=== PATIENT | male | born 1940 | race Two or more races ===

== ENCOUNTER 2022-04-30 14:33 | Inpatient (IN) | payer MEDICARE, OTHER ==
[~2022-04-30] VITALS: Ht 167.6 cm; Wt 73.0 kg
[2022-04-30] MEDS ORDERED: IV NORMAL SALINE 500 ML BAG IV ONE (15:15)
--- NOTE | 2022-04-30 15:30 | NUR ---
Pt ambulatory with cane to room 4A, Somali speaking. MARLON johnson for medical clearance, psych eval and admission to MHU. Pt is alert and oriented x 1, calm and cooperative at this time. Blood drawn by lab. THOMAS Land is aware pt is here and stated she will come in later to eval pt after medical clearance.
--- NOTE | 2022-04-30 15:42 | NUR ---
Pt to be admitted to room 145-B post medical clearance and psych eval.
[2022-04-30 15:50] LABS: HEMATOCRIT 39.8 % (36.7-47.1); MEAN CORPUSCULAR HEMOGLOBIN 26.7 uug (23.8-33.4); MEAN CORPUSCULAR VOLUME 83.4 fL (73.0-96.2); PLATELET COUNT (AUTO) 269 K/uL (152-348)
[2022-04-30 16:01] LABS: CARBON DIOXIDE 29 mmol/L (21-32); CHLORIDE 100 mmol/L (98-107); CREATININE 0.8 mg/dL (0.6-1.3); GLUCOSE 259 mg/dL (74-106); POTASSIUM 3.7 mmol/L (3.5-5.1); UREA NITROGEN, BLOOD 11 mg/dL (7-18)
[2022-04-30] MEDS ORDERED: DOXA4TAB2 PO (16:04)
[2022-04-30] MEDS ORDERED: HYDR-4077 PO (16:04)
[2022-04-30] MEDS ORDERED: GLIP5TAB13 PO (16:04)
[2022-04-30] MEDS ORDERED: EMPA10TA PO (16:04)
[2022-04-30] MEDS ORDERED: BENA40TA67 PO (16:04)
[2022-04-30] MEDS ORDERED: XARELTO PO (16:04)
[2022-04-30] MEDS ORDERED: ASPI81TA31 PO (16:04)
[2022-04-30] MEDS ORDERED: ATOR80TA PO (16:04)
[2022-04-30] MEDS ORDERED: ICOS1CAP PO (16:04)
[2022-04-30] MEDS ORDERED: METF-442 PO (16:04)
[2022-04-30] MEDS ORDERED: DONE10TA44 PO (16:04)
[2022-04-30 16:05] LABS: *BILIRUBIN,URIN NEGATIVE (NEGATIVE); *BLOOD, URINE 2+ (NEGATIVE); *CLARITY,URINE CLEAR (CLEAR); *COLOR,URINE YELLOW (YELLOW); *KETONES,URINE NEGATIVE (NEGATIVE); *UROBILINOGEN,URINE 0.2 E.U./dl (NORMAL); LEUKOCYTE ESTERASE ,URINE NEGATIVE (NEGATIVE); NITRITE, URINE NEGATIVE (NEGATIVE); PH,URINE 5.5 (5.0-8.0); UGLUCOSE 2+ (NEGATIVE)
[2022-04-30 16:07] LABS: ETHANOL < 3 MG/DL (0-0)
[2022-04-30 16:08] LABS: ALANINE AMINOTRANSFERASE 38 U/L (16-63); ALKALINE PHOSPHATASE 79 U/L (50-136); ASPARTATE AMINOTRANSFERASE 17 U/L (15-37); BILIRUBIN,DIRECT 0.1 mg/dL (0.0-0.2); BILIRUBIN,TOTAL 0.5 mg/dL (0.2-1.0); TOTAL PROTEIN, SERUM 8.1 g/dL (6.4-8.2)
[2022-04-30 16:13] LABS: ACETAMINOPHEN < 2.0 ug/mL (10-30)
[2022-04-30] MEDS ORDERED: HYDR-501 PO (16:16)
[2022-04-30 16:21] LABS: *AMPHETAMINE, URINE NEGATIVE (NEGATIVE); *CANNABINOID, URINE NEGATIVE (NEGATIVE); *COCCAINE, URINE NEGATIVE (NEGATIVE); *OPIATE, URINE NEGATIVE (NEGATIVE); *PHENCYCLIDINE SCREEN,URINE NEGATIVE (NEGATIVE)
--- NOTE | 2022-04-30 16:26 | NUR ---
Per pt is medically clear for psych eval, spoke with Shanda who stated her or Seble will be in to eval the pt.
--- NOTE | 2022-04-30 18:30 | NUR ---
Seble here for psych eval.
--- NOTE | 2022-04-30 18:55 | NUR ---
Pt placed on 5150 Hold by bernard Pruett to be admitted to /[facility], U room 145-B.
--- NOTE | 2022-04-30 19:10 | NUR ---
Received report from АНДРЕЙ Tabares.
[2022-04-30 20:10] LABS: BACTERIA,URINE RARE /HPF (NONE SEEN); SQUAMOUS EPITHELIAL CELL,UR FEW /HPF (NONE SEEN); WBC,URINE 0-3 /HPF (0-3)
--- NOTE | 2022-04-30 20:18 | NUR ---
Report given to АНДРЕЙ Soler.
--- NOTE | 2022-04-30 21:10 | NUR ---
Pt. admitted to MHU rm 145 B, under care of Dr. Mcpherson/Dr. Orozco. Belongs List completed АНДРЕЙ Soler aware of patient's arrival to unit.
[2022-04-30 21:22] VITALS: BP 164/70
[2022-04-30] MEDS ORDERED: MAGNESIUM HYDROXIDE 30 ML LIQUID UDC PO PRN (21:30)
[2022-04-30] MEDS ORDERED: MAG HYDROX/AL HYDROX/SIMETH 30 ML LIQUID UDC PO PRN (21:30)
[2022-04-30] MEDS ORDERED: LORAZEPAM 0.5 MG TABLET PO PRN (21:30)
[2022-04-30] MEDS ORDERED: ZOLPIDEM 5 MG TABLET PO PRN (21:30)
[2022-04-30] MEDS ORDERED: ACETAMINOPHEN 325 MG TABLET PO PRN (21:30)
--- NOTE | 2022-05-01 05:09 | NUR ---
Admission Note: Patient is an 82 y/o male, brought to the emergency room via daughter. According to the 5150 hold, he is being held for GD and DTO. Per 5150, the patient became increasingly aggressive and defiant, and was refusing to participate in ADLs, medication, and treatment. Upon face to face assessment, pt is Wolof speaking only/broadcast engineer needed. Pt was appeared depressed, anxious, and a poor historian. Medical history was obtained via daughter Fatuma on file. Patient's advisement and handbook was explained and provided. [facility] outside plant cable engineer Derderian notified regarding the admission. Safety measure in place.
[2022-05-01 07:57] VITALS: BP 159/71
[2022-05-01 08:09] LABS: BILIRUBIN,TOTAL 0.5 mg/dL (0.2-1.0); CREATININE 0.8 mg/dL (0.6-1.3); TOTAL PROTEIN, SERUM 7.5 g/dL (6.4-8.2)
[2022-05-01] MEDS ORDERED: RIVAROXABAN 10 MG TABLET PO SCH (09:00)
[2022-05-01] MEDS ORDERED: DOXAZOSIN MESYLATE PO SCH (09:00)
[2022-05-01] MEDS ORDERED: Empagliflozin (Jardiance) 10 MG) PO SCH (09:00)
[2022-05-01] MEDS ORDERED: hydrALAZINE HCL 50 MG TABLET PO ONE (09:00)
[2022-05-01] MEDS ORDERED: hydrOXYzine HCL 25 MG TABLET PO SCH (09:00)
[2022-05-01] MEDS ORDERED: BENAZEPRIL HCL 20 MG TABLET PO ONE (09:00)
[2022-05-01] MEDS ORDERED: DONEPEZIL 10 MG TABLET PO SCH ×2 (09:00→21:00)
[2022-05-01] MEDS ORDERED: Medication Not On Formulary EA (Atorvastatin Calcium (Lipitor) 1 TAB) PO SCH (09:00)
[2022-05-01] MEDS: glipiZIDE 5 MG TABLET PO SCH ×2 (09:53→16:37)
[2022-05-01] MEDS: MEMANTINE HCL 5 MG TABLET PO SCH ×2 (09:53→21:34)
[2022-05-01] MEDS: ASPIRIN 81 MG TAB.CHEW PO SCH (09:54)
[2022-05-01] MEDS: ESCITALOPRAM OXALATE 10 MG TABLET PO SCH (09:54)
[2022-05-01] MEDS: METFORMIN HCL 500 MG TABLET PO SCH ×2 (09:58→17:21)
[2022-05-01] MEDS ORDERED: HYDR12.55 PO (10:43)
[2022-05-01] MEDS: DOXAZOSIN 2 MG TABLET PO SCH (13:04)
--- NOTE | 2022-05-01 14:41 | NUR ---
GPS: Nursing Notes: Destructive Behavior To Others: Patient is awake and responding to his name, poor insight, believes that he is here for his inflammation of his foreskin of his penis, A/Ox2, needs prompting to participate in therapeutic groups, isolative and withdrawn in his room, ambulatory with fww, unable to formulate a viable plan for self care, continue to monitor for safety, no aggressive behavior noted, continue with treatment plan.
[2022-05-01] MEDS: BENAZEPRIL HCL 20 MG TABLET PO SCH (16:37)
[2022-05-01 16:46] VITALS: BP 125/63
[2022-05-01] MEDS: RIVAROXABAN 2.5 MG PO SCH (17:22)
[2022-05-01] MEDS: [UNRECOGNIZED DRUG - OTHER] PO SCH (17:22)
[2022-05-01 20:00] VITALS: BP 127/61
[2022-05-01] MEDS: hydrALAZINE HCL 50 MG TABLET PO SCH (20:48)
[2022-05-01] MEDS: QUETIAPINE FUMARATE 25 MG TABLET PO SCH (20:48)
[2022-05-01] MEDS: ATORVASTATIN 40 MG TABLET PO SCH (20:49)
[2022-05-02 07:43] VITALS: BP 128/56
[2022-05-02] MEDS: MEMANTINE HCL 5 MG TABLET PO SCH ×2 (09:01→21:19)
[2022-05-02] MEDS: HYDROCHLOROTHIAZIDE 12.5 MG CAPSULE PO SCH (09:02)
[2022-05-02] MEDS: METFORMIN HCL 500 MG TABLET PO SCH ×2 (09:02→17:03)
[2022-05-02] MEDS: BENAZEPRIL HCL 20 MG TABLET PO SCH ×2 (09:02→16:48)
[2022-05-02] MEDS: hydrALAZINE HCL 50 MG TABLET PO SCH ×2 (09:02→21:20)
[2022-05-02] MEDS: ASPIRIN 81 MG TAB.CHEW PO SCH (09:02)
[2022-05-02] MEDS: JARDIANCE 10 MG PO SCH (09:03)
[2022-05-02] MEDS: DOXAZOSIN 2 MG TABLET PO SCH (09:03)
[2022-05-02] MEDS: ESCITALOPRAM OXALATE 10 MG TABLET PO SCH (09:03)
[2022-05-02] MEDS: [UNRECOGNIZED DRUG - OTHER] PO SCH (09:03)
[2022-05-02] MEDS: glipiZIDE 5 MG TABLET PO SCH ×2 (09:03→16:46)
[2022-05-02] MEDS: RIVAROXABAN 2.5 MG PO SCH ×2 (09:04→16:48)
[2022-05-02] MEDS: [UNRECOGNIZED DRUG - OTHER] PO SCH ×2 (09:04→16:48)
--- NOTE | 2022-05-02 14:11 | NUR ---
GPS: Nursing Notes: Destructive Behavior To Others: Patient is awake and responding to his name, isolative and withdrawn in his room, no interactions with peers, unkempt appearance, no aggressive behavior noted, depressed mood and flat affect, needs prompting to participate in therapeutic groups, compliant with his medications, A/Ox2-3, unable to formulate a viable plan for self care, low energy level, continue to monitor for safety, continue with treatment plan.
[2022-05-02 16:28] VITALS: BP 91/46
[2022-05-02 19:56] VITALS: BP 111/51
[2022-05-02] MEDS: ATORVASTATIN 40 MG TABLET PO SCH (21:19)
[2022-05-02] MEDS: QUETIAPINE FUMARATE 25 MG TABLET PO SCH (21:19)
[2022-05-03 07:30] VITALS: BP 136/52
[2022-05-03] MEDS: MEMANTINE HCL 5 MG TABLET PO SCH ×2 (08:40→20:41)
[2022-05-03] MEDS: ASPIRIN 81 MG TAB.CHEW PO SCH (08:40)
[2022-05-03] MEDS: DOXAZOSIN 2 MG TABLET PO SCH (08:41)
[2022-05-03] MEDS: METFORMIN HCL 500 MG TABLET PO SCH ×2 (08:41→17:02)
[2022-05-03] MEDS: BENAZEPRIL HCL 20 MG TABLET PO SCH ×2 (08:42→16:48)
[2022-05-03] MEDS: glipiZIDE 5 MG TABLET PO SCH ×2 (08:42→16:48)
[2022-05-03] MEDS: hydrALAZINE HCL 50 MG TABLET PO SCH ×2 (08:42→20:41)
[2022-05-03] MEDS: ESCITALOPRAM OXALATE 10 MG TABLET PO SCH (08:42)
[2022-05-03] MEDS: RIVAROXABAN 2.5 MG PO SCH ×2 (08:44→16:48)
[2022-05-03] MEDS: HYDROCHLOROTHIAZIDE 12.5 MG CAPSULE PO SCH (08:44)
[2022-05-03] MEDS: [UNRECOGNIZED DRUG - OTHER] PO SCH (08:44)
[2022-05-03] MEDS: [UNRECOGNIZED DRUG - OTHER] PO SCH ×2 (08:44→16:48)
[2022-05-03] MEDS: JARDIANCE 10 MG PO SCH (08:44)
--- NOTE | 2022-05-03 15:12 | NUR ---
MAYNOR Family Contact: MAYNOR spoke with pt's daughter, Fatuma ([phone]) in person regarding pt's discharge plan to [facility] upon discharge. Fatuma expressed her concerns regarding her wishes to discharge the pt today. MAYONR stated per psychiatrist, Dr. Mcpherson, pt is not yet stable for discharge. Per nurse Ki, pt continues to be anxious, forgetful and irritable throughout the day. MAYNOR expressed her empathy and addressed Fatuma's concerns for pt's anxiety during a long meeting. Fatuma was grateful for MAYNOR's time and understanding. MAYNOR assured Fatuma this magazine writer will contact her regarding discharge updates on 05/03/[address] Mcpherson. MAYNOR provided this MAYNOR's number, the nursing station number as well as Dr. Mcpherson's office number.
--- NOTE | 2022-05-03 15:17 | NUR ---
MAYNOR Initial Discharge Note: Pt currently resides at home with his daughter, Fatuma located at [address] [place]. ([phone]). Per Fatuma, pt will discharge to [facility] ([phone]) located at [address] [place] [id number] upon discharge. Integrated Marketing Manager, Estuardo at the facility has confirmed pt's acceptance. MAYNOR will continue to work with pt, family and MD to ensure a safe and proper discharge plan.
--- NOTE | 2022-05-03 15:19 | NUR ---
Firearms Report: Ice House Supervisor completed and submitted a [employer] firearms report for 5150 a danger to others and grave disability certifications. A copy of report has been placed in patient chart.
[2022-05-03] MEDS: ACIDOPHILUS/BULGARICUS CHEW TAB PO SCH ×2 (15:56→20:40)
[2022-05-03 16:00] VITALS: BP 130/61
--- NOTE | 2022-05-03 16:05 | NUR ---
GPS: Nursing Notes: Destructive Behavior To Others: Patient is awake and responding to his name, isolative and withdrawn in his room, depressed mood and blunted affect, needs a lot of prompting to participate in therapeutic groups, ambulatory with fww, low energy level, unkempt appearance, continue to monitor for safety, continue with treatment plan.
[2022-05-03 19:49] VITALS: BP 134/64
[2022-05-03] MEDS: ATORVASTATIN 40 MG TABLET PO SCH (20:41)
[2022-05-03] MEDS: QUETIAPINE FUMARATE 25 MG TABLET PO SCH (20:41)
--- NOTE | 2022-05-04 05:56 | NUR ---
Slept throughout the night. No distress noted. Compliant with all medications. Follows all commands, no agitation noted. Safety maintained. Will endorse to day shift.
[2022-05-04 07:30] VITALS: BP 149/66
[2022-05-04] MEDS: METFORMIN HCL 500 MG TABLET PO SCH ×2 (08:35→17:16)
[2022-05-04] MEDS: ESCITALOPRAM OXALATE 10 MG TABLET PO SCH (08:36)
[2022-05-04] MEDS: DOXAZOSIN 2 MG TABLET PO SCH (08:36)
[2022-05-04] MEDS: ACIDOPHILUS/BULGARICUS CHEW TAB PO SCH ×2 (08:36→20:11)
[2022-05-04] MEDS: BENAZEPRIL HCL 20 MG TABLET PO SCH ×2 (08:37→17:17)
[2022-05-04] MEDS: [UNRECOGNIZED DRUG - OTHER] PO SCH (08:38)
[2022-05-04] MEDS: JARDIANCE 10 MG PO SCH (08:38)
[2022-05-04] MEDS: HYDROCHLOROTHIAZIDE 12.5 MG CAPSULE PO SCH (08:38)
[2022-05-04] MEDS: glipiZIDE 5 MG TABLET PO SCH ×2 (08:38→17:16)
[2022-05-04] MEDS: RIVAROXABAN 2.5 MG PO SCH ×2 (08:39→17:18)
[2022-05-04] MEDS: [UNRECOGNIZED DRUG - OTHER] PO SCH ×2 (08:39→17:18)
[2022-05-04] MEDS: ASPIRIN 81 MG TAB.CHEW PO SCH (08:44)
[2022-05-04] MEDS: hydrALAZINE HCL 50 MG TABLET PO SCH ×2 (08:44→20:10)
[2022-05-04] MEDS: MEMANTINE HCL 5 MG TABLET PO SCH ×2 (08:45→20:11)
[2022-05-04 16:00] VITALS: BP 103/37
--- NOTE | 2022-05-04 17:54 | NUR ---
GPS: Nursing Notes: Destructive Behavior To Others: Patient remain calm and cooperative with meds and care, i no interactions with peers, unkempt appearance, no aggressive behavior noted, depressed mood and flat affect, needs prompting to participate in therapeutic groups, compliant with his medications, A/Ox2-3, unable to formulate a viable plan for self care, low energy level, continue to monitor for safety, continue with treatment plan.
[2022-05-04 19:55] VITALS: BP 139/62
[2022-05-04] MEDS: QUETIAPINE FUMARATE 25 MG TABLET PO SCH (20:10)
[2022-05-04] MEDS: ATORVASTATIN 40 MG TABLET PO SCH (20:11)
[2022-05-05] MEDS: HYDROCHLOROTHIAZIDE 12.5 MG CAPSULE PO SCH (08:37)
[2022-05-05] MEDS: MEMANTINE HCL 5 MG TABLET PO SCH (08:38)
[2022-05-05] MEDS: ESCITALOPRAM OXALATE 10 MG TABLET PO SCH (08:38)
[2022-05-05] MEDS: ACIDOPHILUS/BULGARICUS CHEW TAB PO SCH (08:38)
[2022-05-05] MEDS: glipiZIDE 5 MG TABLET PO SCH (08:39)
[2022-05-05] MEDS: METFORMIN HCL 500 MG TABLET PO SCH (08:39)
[2022-05-05] MEDS: BENAZEPRIL HCL 20 MG TABLET PO SCH (08:39)
[2022-05-05] MEDS: ASPIRIN 81 MG TAB.CHEW PO SCH (08:39)
[2022-05-05] MEDS: hydrALAZINE HCL 50 MG TABLET PO SCH (08:39)
[2022-05-05] MEDS: DOXAZOSIN 2 MG TABLET PO SCH (08:40)
[2022-05-05] MEDS: JARDIANCE 10 MG PO SCH (08:41)
[2022-05-05] MEDS: [UNRECOGNIZED DRUG - OTHER] PO SCH (08:41)
[2022-05-05] MEDS: [UNRECOGNIZED DRUG - OTHER] PO SCH (09:07)
[2022-05-05] MEDS: RIVAROXABAN 2.5 MG PO SCH (09:07)
[2022-05-05 09:39] VITALS: BP 122/76
--- NOTE | 2022-05-05 10:03 | NUR ---
MAYNOR Discharge Note: Pt will be discharged to [facility] [address] [place] [address] via Pts Fatuma goss ([phone]) private vehicle transportation at 11AM. MAYNOR spoke with admin coordinator Pilar at the facility who states they are ready to accept the patient today. Pts daughterFatuma ([phone]) is aware and agreeable with the discharge plan. Pt is aware and agreeable with discharge plan. Pt is alert and oriented x4, is unable to plan for self-care at this time. However, pt is willing to accept care at SNF. Pt denies any suicidal or homicidal ideation. Pt will follow-up at the facility with Psychiatrist, Dr. Ross and Allocation Analyst, Dr. Barr. Pt presents with calm mood and congruent affect. PHARMACY: [facility] ([phone]).
--- NOTE | 2022-05-05 11:19 | NUR ---
Received orders to discharge this patient to [facility] [address] [place] [address] via Pts daughterFatuma ([phone]) private vehicle transportation at 11AM. Patient belongings, valuables, and medications were returned to patient. Patient is agreeable with discharge plans, and signed all discharge documents. Pt. denies SI/HI AH/VH, SOB, pain or any discomfort. Emotional support provided. Fall and safety precautions implemented.
== END 2022-05-05 11:15 | DRG 885 ==
LOC: ER 14:42 → GPS 20:24
PROVIDERS: ADMIT Psychiatry & Neurology Psychiatry; ATTEND Nurse Practitioner Acute Care
DX: F29 Unspecified psychosis not due to a substance or known physiological condition (principal); E11.65 Type 2 diabetes mellitus with hyperglycemia; F03.918 Unspecified dementia, unspecified severity, with other behavioral disturbance; I10 Essential (primary) hypertension; F32.A Depression, unspecified; F39 Unspecified mood [affective] disorder; E78.5 Hyperlipidemia, unspecified; Z20.822 Contact with and (suspected) exposure to COVID-19; Z79.84 Long term (current) use of oral hypoglycemic drugs
CPT/HCPCS: 36415; 71045; 84443; 85025; 93005; A4663; G0480